=== PATIENT | female | born 1940 | race Caucasian/White ===

== ENCOUNTER 2017-01-26 14:15 | Inpatient (IN) | payer OTHER ==
--- NOTE | ~2017-01-26 | HP ---
History And Physical [place] [id number] [facility] [place]. [address] NAME: GHULAM PENA : 42 STATUS : ADM Teto PAT#: [id number] AGE: 76 ADM/REG DATE : 01/27/17 MR#: [id number] REPORT SERV DATE: 01/27/17 DICTATED BY: PATRICIA ENGLAND DATE: 01/26/17 REPORT STATUS : Draft TRANSCRIBED BY: MODL DATE: 01/26/17 DATE OF ADMISSION: 01/27/2017 POINT OF ENTRY: [facility] Emergency Department. PRIMARY CARE PHYSICIAN: Unknown at this time, formerly Dr. Duncan Cox. CHIEF COMPLAINT: Fall, hypoglycemia, and altered mental status. HISTORY OF PRESENT ILLNESS: Ms. Pena is a 76-year-old female with history of chronic lower back pain, leukemia, and asthma, who was found down on the ground by her family members today. Daughter is at bedside, provides most of history as the patient does not provide much history. They state that for the past week or two, they have noted that she has been intermittently confused. They state she has also been in severe amount of lower back pain as she is no longer on chronic pain management for management of her chronic lower back pain. They deny any recent fevers, night sweats, chills, cough, sputum production, shortness of breath, abdominal pain, nausea, vomiting, diarrhea, or constipation. Earlier today, she was found down on the ground unresponsive by family members. EMS was activated. Her sugar reportedly was 55 as well as a blood pressure of 240/110. She was given oral glucose as well as nitroglycerin and brought to the emergency department. Initial evaluation in the emergency department notable for a CT scan of the brain as well as C-spine that were unremarkable. CT scan of the abdomen and pelvis was also unremarkable. Chest x-ray is clear. Urinalysis was without evidence of infection. [place] [address], otherwise labs were unremarkable. She was noted to be mildly hypoxemic as well as extremely hypertensive while she is here. The patient was subsequently admitted to the Hospitalist Service for further evaluation and management. REVIEW OF SYSTEMS: Comprehensive system otherwise negative unless listed in history of present illness. PAST MEDICAL HISTORY: 1. Lumbar degenerative disc disease. 2. Chronic lower back pain, formerly on pain management. 3. Reported history of leukemia. 4. Asthma. 5. Active tobacco abuse. PAST SURGICAL HISTORY: 1. Cholecystectomy. 2. Back surgery. 3. Tubal ligation. History And Physical [address] [address] NAME: GHULAM PENA : 42 STATUS : ADM Teto PAT#: [id number] AGE: 76 ADM/REG DATE : 01/27/17 MR#: [id number] REPORT SERV DATE: 01/27/17 DICTATED BY: PATRICIA ENGLAND DATE: 01/26/17 REPORT STATUS : Draft TRANSCRIBED BY: WOJCIECH DATE: 01/26/17 ALLERGIES: NO KNOWN DRUG ALLERGIES. HOME MEDICATIONS: Tylenol p.r.n. SOCIAL HISTORY: Denies any alcohol or illicits. Lives with her . She does smoke about a pack per day. FAMILY MEDICAL HISTORY: Mother with coronary artery disease. Father's history is unknown. She has 9 siblings, however, her daughter is not familiar with their history. LABS AND IMAGIN. White count 16.0, hemoglobin 15.1, hematocrit 46.0, platelet count is 209, INR is 1.2. 2. Sodium is 142, potassium 4.2, chloride 108, carbon dioxide 30, BUN 7, creatinine 0.94, glucose is 101, calcium is 9.2, magnesium 1.9. 3. Lipase is 98. 4. Troponin less than 0.02. 5. ABG; pH is 7.36, pCO2 is 44, pO2 is 43, bicarb is 25, saturating 82% on room air. 6. EKG per my review shows sinus tachycardia with heart rate about 108 with some left axis deviation, LVH changes but otherwise no evidence of acute ischemia or infarction. 7. Urinalysis: Specific gravity 1.009, no evidence of any infection. Urine drug screen positive for benzodiazepines and opiates. 8. Chest x-ray per my review, shows no acute cardiopulmonary abnormality. 9. CT scan of the brain shows no acute intracranial abnormality. 10.CT scan of the C-spine shows a large left lobe of the thyroid but otherwise no acute fracture or dislocation. 11.CT scan of the abdomen and pelvis shows no acute abdominopelvic pathology, is status post cholecystectomy. PHYSICAL EXAMINATION: VITAL SIGNS: Temperature is 98.5 degrees Fahrenheit, pulse is 106, respirations 22, blood pressure 187/96, on recheck is now 180/126, pulse of 118, saturating 93% on 2 L by nasal cannula. GENERAL: The patient is awake. She is somewhat sedated and lethargic, but awakens easily to verbal stimuli. She is a morbidly obese, female. Family is at bedside. HEENT: Atraumatic and normocephalic. Slightly dry mucous membranes. Pupils are somewhat pinpoint at 5-6 mm but equal, round, and reactive to light. NECK: No jugular venous distention. No carotid bruits. CARDIAC: Tachycardic rate, regular rhythm. No murmurs, rubs, or gallops. LUNGS: Difficult as the patient is not cooperating with exam but otherwise clear at the bases. ABDOMEN: Obese, soft, somewhat tender to palpation in all quadrants with ventral hernia but no rebound, guarding, or rigidity. EXTREMITIES: Warm and well perfused. No cyanosis, clubbing, or edema. SKIN: Warm and dry. PSYCH: Sedated and lethargic, but awakens to verbal stimuli. NEURO: She is alert and oriented to person only but can tell me she is in the hospital. Speech is normal. Gait not assessed. Cranial nerves 2 through 12 are grossly intact. History And Physical [address] [address] NAME: GHULAM PENA : 42 STATUS : ADM Teto PAT#: [id number] AGE: 76 ADM/REG DATE : 01/27/17 MR#: [id number] REPORT SERV DATE: 01/27/17 DICTATED BY: PATRICIA ENGLAND DATE: 01/26/17 REPORT STATUS : Draft TRANSCRIBED BY: MODL DATE: 01/26/17 Moving all extremities well. ASSESSMENT AND PLAN: Ms. Pena is 76-year-old female, who was transferred by EMS for reports of altered mental status, found down on the ground as well as hypoglycemia and hypertension. PROBLEM LIST: 1. Encephalopathy. 2. Hypoglycemia. 3. Hypoxemia. 4. Hypertension. 5. Leukocytosis. 6. Morbid obesity. 7. Chronic lower back pain. PLAN: 1. Encephalopathy of unclear etiology at this time. The patient does have multiple obvious sources including severe hypertension and recent hypoglycemic episode. We will limit the patient's sedating medications. Check ammonia level, TSH, serum drug screen, vitamin B12 levels. Continue to monitor for improvement of the patient's mental status. 2. Hypoglycemia. The patient has corrected here in the emergency department. We will continue to monitor q.2 hours glucoses overnight, hypoglycemia protocol, checking A1c, TSH level as well as cortisol level. 3. Hypoxemia, unclear etiology at this time as chest x-ray is clear. She is not complaining of any shortness of breath. I suspect this may be due to poor respiratory effort secondary to encephalopathy of unclear etiology as well as morbid obesity. Placing her on some DuoNeb p.r.n. 4. Hypertension. Family denies being on any antihypertensives, denies any history of hypertension in the past. I suspect a lot of this is due to uncontrolled lower back pain. IV hydralazine p.r.n. to manage her blood pressure. 5. Leukocytosis, unclear source as urinalysis and chest x-ray are clear. CT of the abdomen and pelvis also unremarkable. I am ordering blood cultures as well as a procalcitonin. 6. Chronic lower back pain. Oral pain medication as well as IV Dilaudid p.r.n. for breakthrough. 7. DVT prophylaxis. Lovenox subcu. 8. Code status. The patient wishes to be full code. JANE/WOJCIECH Patricia England MD / [id number] History And Physical [address] [address] NAME: GHULAM PENA : 42 STATUS : ADM Teto PAT#: [id number] AGE: 76 ADM/REG DATE : 01/27/17 MR#: [id number] REPORT SERV DATE: 01/27/17 DICTATED BY: PATRICIA ENGLAND DATE: 01/26/17 REPORT STATUS : Draft TRANSCRIBED BY: ROBINAL DATE: 01/26/17 CC: My Llamas M.D.
--- NOTE | ~2017-01-26 | EEG ---
Electroencephalogram [facility] [address] [place]. [address] NAME: GHULAM HOPKINS : 42 STATUS : ADM IN PAT#: [id number] AGE: 76 ADM/REG DATE : 01/27/17 MR#: [id number] REPORT SERV DATE: 01/29/17 DICTATED BY: DATE: REPORT STATUS : Draft TRANSCRIBED BY: MODL DATE: 01/29/17 NEUROLOGY EEG REPORT CLINICAL INDICATION: Encephalopathy. DESCRIPTION: This EEG was performed using 10/20 electrode placement system. During the EEG study, symmetric background activity was noted with predominant occipital rhythm of roughly 8 to 9 hertz. Photic stimulation was performed with appropriate driving response. Hyperventilation was not performed secondary to the patient's underlying medical condition. During the EEG study, the patient achieved drowsy state. No focal abnormalities, seizure activity, or seizure discharge was noted during the EEG evaluation. INTERPRETATION: This EEG study obtained during awake and drowsy state may be considered within normal limits. No focal abnormalities, seizure activity, or seizure discharge was otherwise noted. Clinical correlation is recommended. [facility]/WOJCIECH Paulie Velásquez MD / [id number] CC: Jb Richey M.D.
--- NOTE | ~2017-01-26 | CN ---
Consultation Report [facility] [address] [place]. [address] NAME: GHULAM HOPKINS : 42 STATUS : ADM IN PAT#: [id number] AGE: 76 ADM/REG DATE : 01/27/17 MR#: [id number] REPORT SERV DATE: 01/27/17 DICTATED BY: DATE: REPORT STATUS : Draft TRANSCRIBED BY: MODL DATE: 01/27/17 NEUROLOGY CONSULTATION DATE OF CONSULTATION: 01/27/2017 REASON FOR CONSULT: Encephalopathy. HISTORY OF PRESENT ILLNESS: This is a 76-year-old female, presented to [facility] as the patient was found down by family members to be unresponsive. The patient was noted to have encephalopathy, also arousable. The patient overnight has had one vomitus concern for possible aspiration. The patient was noted to have serum glucose of 55 and blood pressure of 240/110. Overnight, the patient was noted to have persistently elevated blood pressure between 170 to 100, recently well controlled since the 01/27/2017. The patient otherwise was not noted to have significant improvement of the symptom, also is arousable, does not follow commands. The patient's family denies similar events in the past and denies any history of prior seizure, no reports of seizure like activities. The patient does have a history of chronic pain issues, but according to family members does not have any recent pain medication. Also, the patient's urinary tract drug screen is positive for opiates and possible benzodiazepine. Otherwise, no reports of recent illnesses, fever, chills, nausea, vomiting, chest pain, or shortness of breath was noted. REVIEW OF SYSTEMS: Unable to be obtained, secondary to patient's current mental status. PAST MEDICAL HISTORY: The patient has past medical history is significant for chronic lower back pain, previously on pain management, but reportedly has not been taking any kind of pain medications recently, although, UDS is positive for benzodiazepine, as well as opiates. The patient was also noted to have a lumbar degenerative disease, history of leukemia, but does not appear to needing any kind of chemotherapy. The patient does have a history of asthma, as well as active tobacco usage. ALLERGIES: AT THE TIME OF EVALUATION, THE PATIENT WAS NOTED TO HAVE NO KNOWN DRUG ALLERGIES. HOME MEDICATIONS: The patient home medication apparently consists of p.r.n. Tylenol only. It is unclear whether or not patient was taking any other pain medications without family knowing. FAMILY HISTORY: Significant for coronary artery disease. PHYSICAL EXAMINATION: VITAL SIGNS: At the time of evaluation, the patient was noted to have vital signs with T- max of 98.5, heart rate of 94 to 126, respiration of 20 to 22, blood pressure of 127 to 200/90 to 153. GENERAL: The patient is well-developed, well-nourished, in no acute distress. Consultation Report [address] [place]. [address] NAME: GHULAM HOPKINS : 42 STATUS : ADM IN PAT#: [id number] AGE: 76 ADM/REG DATE : 01/27/17 MR#: [id number] REPORT SERV DATE: 01/27/17 DICTATED BY: DATE: REPORT STATUS : Draft TRANSCRIBED BY: WOJCIECH DATE: 01/27/17 CARDIOVASCULAR: Regular rate and rhythm. No carotid bruits were otherwise auscultated. PULMONARY: Clear to auscultation bilaterally. NEUROLOGIC: Generally, the patient is arousable with tactile and noxious stimulation. She was noted to have significant difficulty maintaining arousal. She was noted to have dysarthria, able to state her name, but otherwise is disoriented regarding place and thinks she is at home, unable to answer question regarding year, or month, and not following commands. The patient was noted to have decreased attention span and was noted to have difficulty again maintaining arousal. Cranial nerves 2 through 12, pupils equal, round, and reactive to light. The patient does have horizontal eye movement on commands with some vertical eye movement to upward and downward gaze. The patient's facial expression was noted to be roughly symmetrical. With the patient appeared to have sensation to bilateral face. At the time of evaluation, with roughly symmetrical grimace. At the time of evaluation, the patient demonstrated no significant spontaneous movement in bilateral upper and lower extremity, but the patient does have grimace, as well as withdrawal to noxious stimulation in bilateral upper and lower extremity. With the patient noted to have 2+ reflex in bilateral upper and lower extremity. Upgoing toe on the right plantar reflex and downgoing toe on the left plantar reflex. Cerebellar examination and gait was unable to be evaluated, secondary to the patient's mental status. LABORATORY STUDIES: Demonstrated procalcitonin of less than 0.05, sodium 143, potassium 4.2, chloride 108, bicarb is 30, BUN of 7, creatinine 0.94, glucose of 101, calcium of 9.2, magnesium 1.9. Lipase of less than 10, with the patient noted to have a folate of 9.8, vitamin B12 of 272. TSH of 0.121, and free T4 of 1.16, ammonia level of 18, hemoglobin A1c of 5.5. White blood cell count of 16.0, hemoglobin of 15.1, hematocrit of 46.0, platelet count of 209. Urinalysis demonstrated negative leukocyte esterase, negative nitrite. UDS demonstrated positive benzodiazepine, positive for opiates. CT scan of her brain otherwise demonstrated no acute process, with MRI of the brain pending. IMPRESSION: 1. Encephalopathy. The patient was found down by family members to be unresponsive on and was noted to be arousable, but unable to maintain arousal. Upon examination UDS is positive for benzodiazepine and opioids. The patient, in addition, was also noted to be hypertensive with systolic blood pressure above 200 upon ER arrival and throughout most of the night concern for possible hypertensive emergency, versus medication induced encephalopathy, versus meningitis, versus seizure. We will recommend strict blood pressure control to keep systolic blood pressure under 180 mmHg. We will check MRI of the brain which is pending. We will recommend Radiology for lumbar puncture as well as laboratory study. If no significant improvement was noted, we will obtain EEG. RECOMMENDATION: 1. MRI of the brain which is pending. 2. Strict blood pressure control to keep systolic blood pressure under 180 mmHg. 3. Radiology for lumbar puncture. 4. CSF for glucose cell count, protein, HSV, PCR, cryptococcal antigen, cytology gram stain, bacterial culture. Consultation Report [address] [place]. [address] NAME: GHULAM HOPKINS EMELY : 44 STATUS : ADM IN [facility]#: [id number] AGE: 76 ADM/REG DATE : 01/27/17 MR#: [id number] REPORT SERV DATE: 01/27/17 DICTATED BY: DATE: REPORT STATUS : Draft TRANSCRIBED BY: MODL DATE: 01/27/17 5. Procalcitonin, thyroid antibodies, sedimentation rate, CRP, as well as thiamine with morning labs. [facility]/MODL Paulie Velásquez MD / [id number] CC: Jb Richey M.D.
--- NOTE | ~2017-01-26 | DS ---
Discharge Summary [address] [place]. [address] NAME: GHULAM HOPKINS : 44 STATUS : DIS IN PAT#: [id number] AGE: 76 ADM/REG DATE : 01/27/17 MR#: [id number] REPORT SERV DATE: 02/01/17 DICTATED BY: ANURAG SAMAYOA DATE: 01/31/17 REPORT STATUS : Draft TRANSCRIBED BY: MODL DATE: 01/31/17 ADMISSION DATE: 01/27/2017 DISCHARGE DATE: 01/31/2017 DISCHARGE DIAGNOSES: 1. Acute metabolic encephalopathy, resolved. 2. Hypertensive emergency, causing above. 3. Acute on likely chronic hypoxic and hypercapnic respiratory failure. 4. Low back pain. 5. Acute retention of urine. 6. Leukocytosis, unspecified. CONSULTS: Neurology. PROCEDURES: None. HOSPITAL COURSE: This is a 76-year-old lady, who was admitted to the hospital with significant change in mentation along with lethargy and confusion. For details, please refer to H and P by Dr. Braswell. In summary, the patient was initially admitted to [facility] under Dr. Richey's care and she was worked up for encephalopathy. The patient had negative brain imaging along with EEG. The patient also had negative cultures, including CSF. The patient was significantly hypertensive in the ER and thus the patient was diagnosed with hypertensive encephalopathy. Also, as the patient is on sedatives and opiates at home, it may have played a role. The patient was treated supportively along with control of her blood pressure, and she did improve gradually throughout the hospital stay. The patient was seen by Physical Therapy, who actually recommended inpatient rehab and thus the patient is being discharged to inpatient rehab for continued outpatient close monitoring and care. DISPOSITION: Inpatient rehab. FOLLOWUP: Please follow up with PCP in the next one to two weeks. A total of 40 minutes spent in coordinating this patient's discharge today. DICTATED BY: Anurag Samayoa MD [facility]/WOJCIECH Anurag Samayoa MD / [id number] Discharge Summary [address] [place]. [address] NAME: GHULAM HOPKINS : 44 STATUS : DIS IN PAT#: [id number] AGE: 76 ADM/REG DATE : 01/27/17 MR#: [id number] REPORT SERV DATE: 02/01/17 DICTATED BY: ANURAG SAMAYOA DATE: 01/31/17 REPORT STATUS : Draft TRANSCRIBED BY: MODL DATE: 01/31/17 CC: Anurag Samayoa MD
[2017-01-26 13:20] LABS: BASOPHILS 0.2 %; BASOPHILS ABSOLUTE 0.03 10/3/uL (0.0-0.16); EOSINOPHILS 2.3 %; EOSINOPHILS ABSOLUTE 0.37 10/3/uL (0.0-0.53); ER CBC TAT 0 Hrs 09 Mins; HEMOGLOBIN 15.1 g/dL (12.0-16.0); IMMATURE GRANULOCYTES 0.2 %; LYMPHOCYTES 43.3 %; LYMPHOCYTES ABSOLUTE 6.93 10/3/uL (0.67-4.30); MEAN CORPUS HGB CONC 32.8 g/dL (32.0-36.0); MEAN CORPUSCULAR VOLUME 91.3 fL (80-100); MEAN PLATELET VOLUME 9.2 fL (9.2-13.0); MONOCYTES 5.2 %; MONOCYTES ABSOLUTE 0.83 10/3/uL (0.21-1.20); NEUTROPHILS 48.8 %; NEUTROPHILS ABSOLUTE 7.81 10/3/uL (2.02-8.40); PLATELET COUNT 209 10/3/uL (150-400); RBC DISTRIBUTION WIDTH 13.1 % (12.0-16.0); RED CELL COUNT 5.04 10/6/uL (4.0-5.6)
[2017-01-26 13:21] LABS: IMMATURE GRANULOCYTES ABSOLUTE 0.04 10/3/uL (0.0-0.11)
[2017-01-26 13:22] LABS: MANUAL DIFF NO %
[2017-01-26 13:23] LABS: INTERNATIONAL NORMAL RATI 1.2 UNITS (-); PARTIAL THROMBO TIME 26.6 SEC (22.5-37.2); PROTIME (NOT ORD) 14.6 SEC (12.0-14.5)
[2017-01-26 13:33] LABS: BUN (BLOOD UREA NITROGEN) 7 MG/DL (6-23); CALCIUM, SERUM 9.2 MG/DL (8.5-10.4); CHEST PAIN PROFILE TAT 0 Hrs 22 Mins; CHLORIDE, SERUM 108 MMOL/L (96-112); CO2 (CARBON DIOXIDE) 30 MMOL/L (24-34); CREATININE 0.94 MG/DL (0.55-1.02); GFR AFRICAN AMERICAN 69 ML/MIN (>=60); GFR NON AFRICAN AMERICAN 60 ML/MIN (>=60); GLUCOSE, SERUM 101 MG/DL (60-99); POTASSIUM, SERUM 4.2 MMOL/L (3.5-5.3); SODIUM, SERUM 143 MMOL/L (135-148); TROPONIN I <0.02 NG/ML (<0.05)
[2017-01-26 13:38] LABS: EOSINOPHILS 4 %; EOSINOPHILS ABSOLUTE (CALC) 0.64 10/3/uL (0.0-0.53); ER DIFF TAT 0 Hrs 27 Mins; LYMPHOCYTES 19 %; LYMPHOCYTES ABSOLUTE (CALC) 3.04 10/3/uL (0.67-4.30); MONOCYTES 7 %; MONOCYTES ABSOLUTE (CALC) 1.12 10/3/uL (0.21-1.20); PLATELET ESTIMATE ADQ (ADEQUATE); RBC MORPHOLOGY NORM (NORMAL); SEGMENTED NEUTROPHIL (0) 70 %; TOTAL NUCLEATED CELLS 100
[2017-01-26 14:59] LABS: ASCORBIC ACID (UR NOT ORDER) NEG (NEG); BILIRUBIN, URINE NEGATIVE (NEG); ER URINALYSIS TAT 0 Hrs 21 Mins; KETONE, URINE NEGATIVE (NEG); LEUKOCYTE ESTERASE(NOT OR NEG (NEG); NITRITE (URINE) NEG (NEG); WBC (NOT ORDERED) (RFLEX) 1 (0-5)
[2017-01-26 19:41] LABS: BE (BASE EXCESS) -0.8 MEQ/L (0 +/- 2.5); CARBOXYHEMOGLOBIN 1.7 % (0-3); HCO3 (ACTUAL BICARBONATE) 24.8 MEQ/L (23-27); HEMOBLOGIN CONTENT 15.5 G/DL (12-16); INSTRUMENT SERIAL # 8087; METHEMOGLOBIN 0.4 % (0-3); O2 CONTENT 17.4 VOL% (18-24); OPERATOR ID 33449; PCO2 (CO2 TENSION) 44 MMHG (35-45); PO2 (O2 TENSION) 43 MMHG (79-93); SAMPLE Arterial; pH 7.37 (7.37-7.43)
[2017-01-26 19:42] LABS: ALLENS TEST Pos
[2017-01-26 20:37] LABS: AMPHETAMINES (NOT ORD) NEG (NEG); BARBITURATES (NOT ORDERED NEG (NEG); CANNABINOIDS (THC) NEG (NEG); COCAINE (NOT ORDERED) NEG (NEG); OPIATES POS (NEG); PHENCYCLIDINE(PCP) NEG (NEG); TRICYCLICS NEG (NEG)
[2017-01-26 20:39] LABS: BENZODIAZEPINES (NOT ORD) POS (NEG)
[2017-01-26] MEDS ORDERED: *DENIES (20:46)
[2017-01-26] MEDS ORDERED: ACET500CAP PO (20:50)
[2017-01-26 23:49] LABS: ALBUMIN 3.3 G/DL (3.5-5.0); ALKALINE PHOSPHATASE 93 U/L (45-117); SGPT(ALT) 19 U/L (5-65); TOTAL PROTEIN 7.1 G/DL (6.0-8.5); TROPONIN I <0.02 NG/ML (<0.05)
[2017-01-26 23:50] LABS: DIRECT BILIRUBIN < 0.1 MG/DL (0.0-0.4); INDIRECT BILIRUBIN(NOT ORDER) 0.9 MG/DL (0.1-0.9)
[2017-01-26 23:51] LABS: ACETAMINOPHEN LEVEL (TYLENOL) < 2.0 MCG/ML (10.0-20.0); ALCOHOL < 10 MG/DL (0); SALICYLATE < 1.7 MG/DL (-); SGOT(AST) 49 U/L (5-40)
[2017-01-27 02:11] LABS: FOLATE 9.8 NG/ML (>5.2)
[2017-01-27 02:42] LABS: PROCALCITONIN <0.05 ng/mL (<0.5)
[2017-01-27 05:35] LABS: FREE T4 1.16 NG/DL (0.76-1.46); ULTRASENSITIVE TSH 0.121 MCIU/ML (0.358-3.740)
[2017-01-27 07:33] LABS: CREATININE, URINE 90.2 MG/DL
[2017-01-27 10:11] LABS: GLYCOHEMOGLOBIN (HbA1c) 5.5 % (4.7-6.1)
[2017-01-27 15:54] LABS: ALLENS TEST Pos; BE (BASE EXCESS) 0.6 MEQ/L (0 +/- 2.5); CARBOXYHEMOGLOBIN 1.4 % (0-3); DEVICE NC; HCO3 (ACTUAL BICARBONATE) 27.2 MEQ/L (23-27); HEMOBLOGIN CONTENT 14.8 G/DL (12-16); INSTRUMENT SERIAL # 8087; METHEMOGLOBIN 0.3 % (0-3); O2 CONTENT 18.7 VOL% (18-24); OPERATOR ID 18801; PCO2 (CO2 TENSION) 52 MMHG (35-45); PO2 (O2 TENSION) 63 MMHG (79-93); SAMPLE Arterial; pH 7.34 (7.37-7.43)
[2017-01-28 03:36] LABS: ALLENS TEST Pos; DEVICE NC; HEMOBLOGIN CONTENT 14.5 G/DL (12-16); INSTRUMENT SERIAL # 8083; METHEMOGLOBIN 0.2 % (0-3); O2 CONTENT 19.7 VOL% (18-24); OPERATOR ID 16469; PCO2 (CO2 TENSION) 37 MMHG (35-45); PO2 (O2 TENSION) 96 MMHG (79-93); SAMPLE Arterial; pH 7.42 (7.37-7.43)
[2017-01-28 06:42] LABS: HEMOGLOBIN 13.7 g/dL (12.0-16.0); MEAN CORPUS HGB CONC 33.7 g/dL (32.0-36.0); MEAN CORPUSCULAR VOLUME 88.8 fL (80-100); MEAN PLATELET VOLUME 9.2 fL (9.2-13.0); PLATELET COUNT 207 10/3/uL (150-400); RBC DISTRIBUTION WIDTH 13.6 % (12.0-16.0); RED CELL COUNT 4.57 10/6/uL (4.0-5.6)
[2017-01-28 06:43] LABS: HEMATOCRIT 40.6 % (36.0-48.0); MANUAL DIFF YES %; WHITE BLOOD CELLS 22.9 10/3/uL (4.5-10.5)
[2017-01-28 06:49] LABS: A/G RATIO 0.8 (0.7-1.9); BUN (BLOOD UREA NITROGEN) 10 MG/DL (6-23); C-REACTIVE PROTEIN 35.2 MG/L (<8.0); CHLORIDE, SERUM 106 MMOL/L (96-112); CO2 (CARBON DIOXIDE) 29 MMOL/L (24-34); GFR AFRICAN AMERICAN 99 ML/MIN (>=60); GFR NON AFRICAN AMERICAN 85 ML/MIN (>=60); GLOBULIN 3.6 G/DL (2.5-4.1); POTASSIUM, SERUM 3.8 MMOL/L (3.5-5.3); SGOT(AST) 18 U/L (5-40); SGPT(ALT) 19 U/L (5-65); SODIUM, SERUM 140 MMOL/L (135-148); TOTAL PROTEIN 6.6 G/DL (6.0-8.5)
[2017-01-28 06:50] LABS: ALKALINE PHOSPHATASE 78 U/L (45-117); GLUCOSE, SERUM 139 MG/DL (60-99)
[2017-01-28 07:19] LABS: PROCALCITONIN <0.05 ng/mL (<0.5)
[2017-01-28 07:22] LABS: LYMPHOCYTES 35 %; LYMPHOCYTES ABSOLUTE (CALC) 8.02 10/3/uL (0.67-4.30); MONOCYTES 3 %; MONOCYTES ABSOLUTE (CALC) 0.69 10/3/uL (0.21-1.20); PLATELET ESTIMATE ADQ (ADEQUATE); RBC MORPHOLOGY NORM (NORMAL); SEGMENTED NEUTROPHIL (0) 62 %; TOTAL NUCLEATED CELLS 100
[2017-01-28 07:23] LABS: SMUDGE CELLS OCC
[2017-01-28 07:57] LABS: SED RATE 12 MM/HR (0-20)
[2017-01-28 14:42] LABS: GLUCOSE CSF 86 MG/DL (45-70); TOTAL PROTEIN, CSF 63.9 MG/DL (15-45)
[2017-01-28 15:02] LABS: CSF APPEARANCE (NOT ORD) CLEAR (CLEAR); CSF BASO 0 % (NO REF RANGE); CSF COLOR (NOT ORD) COLORLESS (COLORLESS); CSF EOS 0 % (0-1); CSF LYMPH (NOT ORD) 87 % (28-96); CSF MONO 13 % (16-56); CSF SEGS (NOT ORD) 0 % (0-7); CSF XANTHROCHROMIA NEG (NEG)
[2017-01-28 15:05] LABS: CSF RBC (NOT ORD) 2 MM3 (NO REFERENCE); CSF WBC (NOT ORD) 5 /uL (0-10)
[2017-01-29 04:09] LABS: ALLENS TEST Pos; BE (BASE EXCESS) 1.2 MEQ/L (0 +/- 2.5); CARBOXYHEMOGLOBIN 1.1 % (0-3); DEVICE NC; HCO3 (ACTUAL BICARBONATE) 26.2 MEQ/L (23-27); HEMOBLOGIN CONTENT 13.1 G/DL (12-16); INSTRUMENT SERIAL # 8083; METHEMOGLOBIN 0.2 % (0-3); O2 CONTENT 17.5 VOL% (18-24); OPERATOR ID 23712; PCO2 (CO2 TENSION) 43 MMHG (35-45); PO2 (O2 TENSION) 80 MMHG (79-93); SAMPLE Arterial
[2017-01-29 05:37] LABS: HEMATOCRIT 39.4 % (36.0-48.0); HEMOGLOBIN 12.8 g/dL (12.0-16.0); MEAN CORPUS HGB CONC 32.5 g/dL (32.0-36.0); MEAN CORPUSCULAR HEMOGLOB 29.8 pg (26.0-34.0); MEAN PLATELET VOLUME 9.7 fL (9.2-13.0); PLATELET COUNT 172 10/3/uL (150-400); RBC DISTRIBUTION WIDTH 13.8 % (12.0-16.0); RED CELL COUNT 4.29 10/6/uL (4.0-5.6); WHITE BLOOD CELLS 16.9 10/3/uL (4.5-10.5)
[2017-01-29 05:38] LABS: MANUAL DIFF YES %; MEAN CORPUSCULAR VOLUME 91.8 fL (80-100)
[2017-01-29 05:39] LABS: A/G RATIO 0.9 (0.7-1.9); ALBUMIN 2.8 G/DL (3.5-5.0); CALCIUM, SERUM 8.9 MG/DL (8.5-10.4); CHLORIDE, SERUM 108 MMOL/L (96-112); CO2 (CARBON DIOXIDE) 29 MMOL/L (24-34); CREATININE 0.73 MG/DL (0.55-1.02); GFR AFRICAN AMERICAN 94 ML/MIN (>=60); GFR NON AFRICAN AMERICAN 81 ML/MIN (>=60); GLOBULIN 3.2 G/DL (2.5-4.1); GLUCOSE, SERUM 112 MG/DL (60-99); POTASSIUM, SERUM 3.6 MMOL/L (3.5-5.3); SGOT(AST) 17 U/L (5-40); SGPT(ALT) 16 U/L (5-65); SODIUM, SERUM 138 MMOL/L (135-148); TOTAL BILIRUBIN 0.7 MG/DL (0-1.2)
[2017-01-29 05:40] LABS: ALKALINE PHOSPHATASE 66 U/L (45-117); BUN (BLOOD UREA NITROGEN) 15 MG/DL (6-23)
[2017-01-29 06:00] LABS: BAND NEUTROPHILS 2 %; BASOPHILS 2 %; BASOPHILS ABSOLUTE (CALC) 0.34 10/3/uL (0.0-0.16); EOSINOPHILS 2 %; EOSINOPHILS ABSOLUTE (CALC) 0.34 10/3/uL (0.0-0.53); LYMPHOCYTES 23 %; LYMPHOCYTES ABSOLUTE (CALC) 3.89 10/3/uL (0.67-4.30); MONOCYTES 8 %; MONOCYTES ABSOLUTE (CALC) 1.35 10/3/uL (0.21-1.20); NEUTROPHILS ABSOLUTE (CALC) 10.99 10/3/uL (2.02-8.40); PLATELET ESTIMATE ADQ (ADEQUATE); RBC MORPHOLOGY NORM (NORMAL); SEGMENTED NEUTROPHIL (0) 63 %; TOTAL NUCLEATED CELLS 100
[2017-01-30 06:03] LABS: BUN (BLOOD UREA NITROGEN) 16 MG/DL (6-23); CALCIUM, SERUM 8.7 MG/DL (8.5-10.4); CHLORIDE, SERUM 104 MMOL/L (96-112); CO2 (CARBON DIOXIDE) 30 MMOL/L (24-34); CREATININE 0.74 MG/DL (0.55-1.02); GFR AFRICAN AMERICAN 92 ML/MIN (>=60); GFR NON AFRICAN AMERICAN 80 ML/MIN (>=60); GLUCOSE, SERUM 101 MG/DL (60-99); POTASSIUM, SERUM 3.9 MMOL/L (3.5-5.3); SODIUM, SERUM 141 MMOL/L (135-148)
[2017-01-30 06:37] LABS: HEMATOCRIT 39.6 % (36.0-48.0); HEMOGLOBIN 12.7 g/dL (12.0-16.0); MEAN CORPUS HGB CONC 32.1 g/dL (32.0-36.0); MEAN CORPUSCULAR HEMOGLOB 29.6 pg (26.0-34.0); MEAN CORPUSCULAR VOLUME 92.3 fL (80-100); MEAN PLATELET VOLUME 9.4 fL (9.2-13.0); NUCLEATED RED BLOOD CELLS 1.7 /100WBC (0-0); PLATELET COUNT 184 10/3/uL (150-400); RBC DISTRIBUTION WIDTH 13.3 % (12.0-16.0); RED CELL COUNT 4.29 10/6/uL (4.0-5.6); WHITE BLOOD CELLS 14.2 10/3/uL (4.5-10.5)
[2017-01-30 06:39] LABS: MANUAL DIFF YES %
[2017-01-30 07:12] LABS: EOSINOPHILS 3 %; EOSINOPHILS ABSOLUTE (CALC) 0.43 10/3/uL (0.0-0.53); LYMPHOCYTES 41 %; LYMPHOCYTES ABSOLUTE (CALC) 5.82 10/3/uL (0.67-4.30); MONOCYTES 4 %; MONOCYTES ABSOLUTE (CALC) 0.57 10/3/uL (0.21-1.20); NEUTROPHILS ABSOLUTE (CALC) 7.38 10/3/uL (2.02-8.40); PLATELET ESTIMATE ADQ (ADEQUATE); SEGMENTED NEUTROPHIL (0) 52 %; TOTAL NUCLEATED CELLS 100
[2017-01-30 07:13] LABS: RBC MORPHOLOGY NORM (NORMAL); SMUDGE CELLS OCC
[2017-01-31 12:41] LABS: HSV DNA TYPE 1 Not Detected (NOTDET); HSV DNA TYPE 2 Not Detected (NOTDET)
[2017-01-31 12:43] LABS: THYROID PEROXIDASE AUTO AB 0.5 IU/mL (0.0-9.0)
[2017-01-31 13:05] LABS: THYROGLOBULIN AUTO ANTIBODY <0.9 IU/mL (0.0-4.0)
[2017-01-31 17:40] LABS: THIAMINE 10.9 nmol/L (()); THIAMINE MONOPHOSPHATE 1.2 nmol/L (())
== END 2017-01-31 17:55 | DRG 77 ==
LOC: ER 14:15 → CDU1 01-27 00:12 → 2SO 01-27 00:33 → ER/OF 01-27 02:27 → 6NO 01-27 11:45 → ER/OF 01-27 16:40 → IMCU 01-27 20:54 → 6NO 01-29 13:44
PROVIDERS: Emergency Medicine; Hospitalist; Internal Medicine; Psychiatry & Neurology Neurology
PROC: 009U3ZX Drainage of Spinal Canal, Percutaneous Approach, Diagnostic (ICD-10-PCS; principal; 2017-01-28)
PROC: B01B1ZZ Fluoroscopy of Spinal Cord using Low Osmolar Contrast (ICD-10-PCS; 2017-01-28)
PROC: 02HV33Z Insertion of Infusion Device into Superior Vena Cava, Percutaneous Approach (ICD-10-PCS; 2017-01-28)
PROC: 4A02X4A Measurement of Cardiac Electrical Activity, Guidance, External Approach (ICD-10-PCS; 2017-01-28)
DX: I67.4 Hypertensive encephalopathy (principal); J96.21 Acute and chronic respiratory failure with hypoxia; E87.2 Acidosis; J96.22 Acute and chronic respiratory failure with hypercapnia; I16.1 Hypertensive emergency; R33.9 Retention of urine, unspecified; E16.2 Hypoglycemia, unspecified; D72.829 Elevated white blood cell count, unspecified; M51.36 Other intervertebral disc degeneration, lumbar region; F17.210 Nicotine dependence, cigarettes, uncomplicated; E66.01 Morbid (severe) obesity due to excess calories; F13.90 Sedative, hypnotic, or anxiolytic use, unspecified, uncomplicated; G89.29 Other chronic pain; Z85.6 Personal history of leukemia; Z82.49 Family history of ischemic heart disease and other diseases of the circulatory system; Z79.891 Long term (current) use of opiate analgesic; Z68.37 Body mass index [BMI] 37.0-37.9, adult
CPT/HCPCS: 31720; 36569; 36600; 62270; 70450; 70551-52; 71010; 72125; 73560-LT; 74176; 77003; 80048; 80053; 80076; 80305; 80307; 81001; 82140; 82533; 82570; 82607; 82746; 82805; 82945; 82962; 83036; 83605; 83690; 83735; 83935; 84145; 84157; 84300; 84425; 84439; 84443; 84484; 85025; 85610; 85652; 85730; 86140; 86376; 86592; 86800; 87040; 87045; 87046; 87046-59; 87070; 87205; 87327; 87328; 87329; 87389; 87493; 87493-59; 87529; 87529-59; 87641; 87899; 87899-59; 88112; 89051; 89055; 93005; 95816; 96374; 96375; 96376; 97161-GP; 99285; A9270-GY; C1751; G8978-CK-GP; G8979-CK-GP; G8980-CK-GP; J0360; J1170; J2405; J3370